=== PATIENT | male | born 1960 | race Caucasian/White ===

== ENCOUNTER 2022-05-15 10:56 | Day surgery (SDC) | payer MEDICAID ==
[~2022-05-15] VITALS: Ht 177.8 cm; Wt 55.5 kg
[2022-05-15] VITALS (9 sets, daily range): BP systolic 119–148; BP diastolic 57–74
[2022-05-15] MEDS ORDERED: FERR325T29 PO (11:27)
[2022-05-15] MEDS ORDERED: ACET-75 PO (11:27)
[2022-05-15 12:07] LABS: BASOPHILS # (AUTO) 0.1 X10'3 (0-0.2); BASOPHILS % (AUTO) 0.7 % (0-1); EOSINOPHILS % (AUTO) 0.3 % (0-6); HEMATOCRIT 24.9 % (42.0-52.0); HEMOGLOBIN 7.7 g/dl (14.0-17.9); LYMPHOCYTES # (AUTO) 0.9 X10'3 (1.1-4.8); LYMPHOCYTES % (AUTO) 10.4 % (21-51); MEAN CORPUSCULAR HEMOGLOBIN 21.5 PG (27.0-31.0); MEAN CORPUSCULAR HGB CONC 30.8 g/dL (33.0-36.5); MEAN CORPUSCULAR VOLUME 69.8 FL (78-98); MEAN PLATELET VOLUME 6.2 FL (7.4-10.4); MONOCYTES # (AUTO) 0.8 X10'3 (0-0.9); NEUTROPHILS # (AUTO) 6.7 X10'3 (1.8-7.7); NEUTROPHILS % (AUTO) 79.6 % (42-75); PLATELET COUNT 554 X10'3 (140-440); RED BLOOD COUNT 3.56 X10'6 (4.70-6.10); RED CELL DISTRIBUTION WIDTH 14.4 % (11.5-14.5); WHITE BLOOD COUNT 8.4 X10'3 (4.5-11.0)
[2022-05-15 12:32] LABS: MICROCYTOSIS 2+; PLATELET ESTIMATE INCREASED; POIKILOCYTOSIS 1+; SPHEROCYTES 1+
[2022-05-15] MEDS ORDERED: heparin sodium, porcine/PF 100unit/ml 5ML syringe ONE (13:37)
[2022-05-15] MEDS ORDERED: LIDOcaine 1% 30ml preserv. free vial ONE (13:37)
[2022-05-15] MEDS ORDERED: midazolam 1 mg/ML 2ml injection ONE ×2 (13:37→14:42)
[2022-05-15] MEDS ORDERED: FENTANYL CITRATE/PF 50 MCG/1 ML VIAL ONE ×3 (13:38→15:19)
[2022-05-15] MEDS ORDERED: gelatin sponge, absorbable (Gelfoam 12-7MM) sponge TP ONE (15:04)
[2022-05-15] MEDS ORDERED: normal saline 1000ml 1,000 ML IV SCH (15:30)
== END 2022-05-15 17:30 | disposition home or self-care (01) ==
LOC: SSTAY O 10:56
PROVIDERS: ATTEND Radiology Vascular & Interventional Radiology
DX: C18.9 Malignant neoplasm of colon, unspecified (principal); C78.7 Secondary malignant neoplasm of liver and intrahepatic bile duct; K76.9 Liver disease, unspecified; Z79.899 Other long term (current) drug therapy; Z98.890 Other specified postprocedural states
CPT/HCPCS: 36415; 36561; 47000; 76937; 76942; 77001; 85025; 85610; 99152; 99153; C1788; C1894; J1642; J2250; J3010; J3490; J7030; 85008; A4620